=== PATIENT | female | born 1950 | race Caucasian/White ===

== ENCOUNTER → 2016-09-24 | Outpatient (CLI) | payer BC ==
--- NOTE | 2016-09-24 16:36 | XR ---
EXAMINATION TYPE: XR scoliosis survey, AP and lateral XR lumbosacral spine min 4V DATE OF EXAM: 09/24/2016 2:22 PM COMPARISON: NONE HISTORY: 66-year-old female with spondylolisthesis, lumbosacral pain FINDINGS: Lumbar spine: Leftward truncal shift with 5 lumbar type vertebral bodies. Hypertrophic facet arthropathy throughout the lumbar spine with variable mild disc interspace narrowing, mild to moderate at L5-S1. There is g rade 1 anterolisthesis at both L3-L4 and L4-L5. Vertebral body heights are maintained. Flexion result s in minimal 1 mm accentuation of the L4-L5 anterolisthesis. Extension does not significantly correct either L3-L4 or L4-L5 subluxation. Vertebral body heights are preserved. L4 limbus vertebra. Scoliosis study: 12 rib-bearing thoracic vertebral bodies. There is a gentle S-shaped curvature of the thoracolumbar s pine. Moderate endplate spondylosis upper to mid thoracic spine. To the extent visualized, vertebral body heights are maintained. The rightward curvature of the thoracic spine has a Arita angle 14 degrees. Leftward curvature of the lumbar spine has a Arita angle 6 degrees. Calcified granuloma right upper and midlung. IMPRESSION: 1. Lumbar spine: Facet arthropathy throughout with variable mild to moderate degenerative disc diseas e. 2. Lumbar spine: There are grade 1 anterolistheses at both L3-L4 and L4-L5. No evidence for dynamic s ubluxation; flexion leads to minimal 1 mm accentuation of the anterolisthesis at L4-L5. 3. Scoliosis: Gentle S-shaped curvature of the thoracolumbar spine with Arita angles as above. 4. Scoliosis: No vertebral compression collapse. 5. Scoliosis: Mild to moderate endplate spondylosis upper to mid thoracic spine.
== END ==
LOC: RADXRMAIN 13:49
PROVIDERS: ATTEND Specialist
DX: M43.16 Spondylolisthesis, lumbar region (principal); M51.36 Other intervertebral disc degeneration, lumbar region; M47.814 Spondylosis without myelopathy or radiculopathy, thoracic region; M46.86 Other specified inflammatory spondylopathies, lumbar region; M41.85 Other forms of scoliosis, thoracolumbar region
CPT/HCPCS: 72082; 72110

== ENCOUNTER → 2016-10-08 | Outpatient (CLI) | payer BC ==
--- NOTE | 2016-10-09 11:06 | MR ---
EXAMINATION TYPE: MR lumbar spine wo con DATE OF EXAM: 10/08/2016 COMPARISON: Prior plain film 09/24/2016, prior lumbar MRI dated 07/24/2014 HISTORY: Low back weakness, Spondylolisthesis TECHNIQUE: Multiplanar, multisequence images of the lumbar spine were acquired. L1-L2: Normal disc appearance without desiccation. No herniation, protrusion or disc bulging. No ca nal stenosis is present. Foramina are patent bilaterally. L2-L3: Trefoil appearance of the thecal sac is present due to facet arthropathy with hypertrophy of t he ligamentum flavum encroaching on the lateral recesses. No significant central stenosis or foramina l encroachment. L3-L4: Listhesis with associated facet arthropathy results in 8 trefoil appearance of the thecal sac. No significant foraminal encroachment. L4-L5: Posterior broad-based disc bulge causes mild anterior mass effect on the thecal sac and possib ly contacting the proximal S1 nerve roots left greater than right. There is no significant central st enosis. There is associated facet arthropathy. Facet arthropathy with hypertrophy of the ligamentum f lavum encroaches on the lateral recesses. L5-S1: Posterior broad-based disc bulge causes anterior mass effect on the thecal sac. There is facet arthropathy with hypertrophy ligamentum flavum encroaching on the lateral recesses. Circumferential extension endplate disc complex results in some mild right-sided foraminal encroachment greater than left. Lumbar segments are intact. No paraspinal masses are identified. Conus medullaris has a normal appe arance. Alignment shows a similar appearance, there is anterolisthesis grade 1 L4-5, L3-4. Probable h emangioma present in the superior endplate posteriorly at L4. Bone marrow signal shows a similar appe arance. Loss of disc height and signal at the intervertebral levels especially L2-3, L3-4, L4-5 and L 5-S1. No significant central canal stenosis. Multilevel facet arthropathy. There is a mild spinal cur vature as on prior IMPRESSION: Multilevel degenerative disc disease, facet arthropathy as on prior exam. Additional findings above.
== END | disposition home or self-care (01) ==
LOC: RADMRIMAIN 15:02
PROVIDERS: ATTEND Specialist
DX: M51.36 Other intervertebral disc degeneration, lumbar region (principal); M46.86 Other specified inflammatory spondylopathies, lumbar region
CPT/HCPCS: 72148

== ENCOUNTER → 2018-03-06 | Outpatient (CLI) | payer MEDICARE, BC ==
--- NOTE | 2018-03-06 14:49 | BD ---
EXAMINATION TYPE: Axial Bone Density DATE OF EXAM: 03/06/2018 COMPARISON: 03.26.2015 CLINICAL HISTORY: 68 YR OLD FEMALE.....ICD-10 CODE: Z13.820 OSTEOPOROSIS Height: 60.8 Weight: 114 FRAX RISK QUESTIONS: Family History (Parent hip fracture): YES RISK FACTORS HISTORY OF: Surgery to Spine/Hip...LAMINECTOMY TO L/S SPINE, BILAT TOTAL HIP REPLACEMENTS When: 2011 LAMINECTOMY, 2012 LT , 2016 RT HIPS Family History of Osteoporosis: YES, MOTHER AND GRANDMOTHER, YES, BROKEN HIPS Postmenopausal woman: YES, ABOUT 47YRS OLD Lost more than 2 inches in height since high school: YES MEDICATIONS: Prednisone or other steroids: SINGULAIR, ASTHMA, How Long: YRS Thyroid Medications: YES, SYNTHROID, FOR ABOUT 16 YRS Additional Medications: CALCIUM AND VIT D, Additional History: OSTEOARTHRITIS EXAM MEASUREMENTS: Bone mineral densitometry was performed using the [employer]. SPINE NOT SCANNED.....LAMINECTOMY 2011 HIPS NOT SCANNED THR LT 2011.....THR RT 2015 Bone mineral density about the L Wrist (g/cm2): 0.641 T Score values are as follows: -----Dist. R+U: 1.2 -----Prox. R+U: 0.5 -----Radius total: 0.3 Bone mineral density FIRST FOREARM SCAN FOR PATIENT NO FRAX.... IMPRESSION: No evidence for osteoporosis or osteopenia. NOTE: T-SCORE=SD OF THE YOUNG ADULT MEAN.
--- NOTE | 2018-03-08 10:40 | MM ---
Reason for exam: screening (asymptomatic). Last mammogram was performed 1 year ago. History: Patient is postmenopausal and has history of endometrial cancer at age 54. Physical Findings: A clinical breast exam by your physician is recommended on an annual basis and results should be correlated with mammographic findings. MG 3D Screening Mammo W/Cad Bilateral CC and MLO view(s) were taken. Technologist: Yolanda Castaneda RT (R)(M) Prior study comparison: March 04, 2017, bilateral MG 3d screening mammo w/cad. March 02, 2016, bilateral MG screening mammo w CAD. There are scattered fibroglandular densities. No significant changes when compared with prior studies. ASSESSMENT: Benign, BI-RAD 2 RECOMMENDATION: Routine screening mammogram of both breasts in 1 year.
== END ==
LOC: RADMAMWWP 09:56
PROVIDERS: ATTEND Obstetrics & Gynecology
DX: Z12.31 Encounter for screening mammogram for malignant neoplasm of breast (principal); Z13.820 Encounter for screening for osteoporosis; Z78.0 Asymptomatic menopausal state
CPT/HCPCS: 77063; 77067; 77081

== ENCOUNTER → 2018-05-09 | Outpatient (CLI) | payer MEDICARE, BC ==
--- NOTE | 2018-05-09 16:51 | XR ---
EXAMINATION TYPE: XR abdomen 2V DATE OF EXAM: 05/09/2018 CLINICAL DATA: 68-year-old female fecal urgency, diarrhea, [facility] COMPARISON: None FINDINGS: Lung bases are clear. No evidence for free intraperitoneal air. No dilated small bowel or air-fluid levels. Scattered air and stool seen throughout the colon extendi ng distally into the rectum. Moderate stool burden. No suspicious calcifications identified. Phleboliths in the pelvis. Partially visualized bilateral total arthroplasties. Prominent bridging to nearly bridging heterotopi c ossification superior left hip. IMPRESSION: 1. Moderate stool burden. 2.No evidence of bowel obstruction or free intraperitoneal air.
== END | disposition home or self-care (01) ==
LOC: RADXRYALE 13:59
PROVIDERS: ATTEND Physician Assistant Medical
DX: R15.2 Fecal urgency (principal); R19.7 Diarrhea, unspecified
CPT/HCPCS: 74019

== ENCOUNTER → 2019-04-09 | Outpatient (CLI) | payer MEDICARE, BC ==
--- NOTE | 2019-04-10 08:52 | MM ---
Reason for exam: screening (asymptomatic). Last mammogram was performed 1 year and 1 month ago. History: Patient is postmenopausal and has history of endometrial cancer at age 54. Physical Findings: A clinical breast exam by your physician is recommended on an annual basis and results should be correlated with mammographic findings. MG 3D Screening Mammo W/Cad Bilateral CC and MLO view(s) were taken. Prior study comparison: March 06, 2018, bilateral MG 3d screening mammo w/cad. March 04, 2017, bilateral MG 3d screening mammo w/cad. The breast tissue is heterogeneously dense. This may lower the sensitivity of mammography. Benign appearing bilateral calcifications. There is chronic nodularity in the right breast. No significant changes when compared with prior studies. ASSESSMENT: Benign, BI-RAD 2 RECOMMENDATION: Routine screening mammogram of both breasts in 1 year.
== END | disposition home or self-care (01) ==
LOC: RADMAMWWP 14:10
PROVIDERS: ATTEND Obstetrics & Gynecology
DX: Z12.31 Encounter for screening mammogram for malignant neoplasm of breast (principal)
CPT/HCPCS: 77063; 77067

== ENCOUNTER → 2020-08-13 | Outpatient (CLI) | payer MEDICARE, BC ==
--- NOTE | 2020-08-14 11:21 | MM ---
Reason for exam: screening (asymptomatic). Last mammogram was performed 1 year and 4 months ago. History: Patient is postmenopausal and has history of endometrial cancer at age 54. Physical Findings: A clinical breast exam by your physician is recommended on an annual basis and results should be correlated with mammographic findings. MG 3D Screening Mammo W/Cad Bilateral CC and MLO view(s) were taken. Prior study comparison: April 09, 2019, bilateral MG 3d screening mammo w/cad. March 06, 2018, bilateral MG 3d screening mammo w/cad. The breast tissue is heterogeneously dense. This may lower the sensitivity of mammography. There are benign appearing vascular calcifications bilaterally. There is no discrete abnormality. ASSESSMENT: Benign, BI-RAD 2 RECOMMENDATION: Routine screening mammogram of both breasts in 1 year.
== END | disposition home or self-care (01) ==
LOC: RADMAMWWP 10:25
PROVIDERS: ATTEND Obstetrics & Gynecology
DX: Z12.31 Encounter for screening mammogram for malignant neoplasm of breast (principal)
CPT/HCPCS: 77063; 77067

== ENCOUNTER → 2021-08-25 | Outpatient (CLI) | payer MEDICARE, BC ==
--- NOTE | 2021-08-26 12:34 | MM ---
Reason for exam: screening (asymptomatic). Last mammogram was performed 1 year ago. History: Patient is postmenopausal and has history of endometrial cancer at age 54. Physical Findings: A clinical breast exam by your physician is recommended on an annual basis and results should be correlated with mammographic findings. MG 3D Screening Mammo W/Cad Bilateral CC and MLO view(s) were taken. Prior study comparison: August 13, 2020, bilateral MG 3d screening mammo w/cad. April 09, 2019, bilateral MG 3d screening mammo w/cad. The breast tissue is heterogeneously dense. This may lower the sensitivity of mammography. No significant changes when compared with prior studies. ASSESSMENT: Benign, BI-RAD 2 RECOMMENDATION: Routine screening mammogram of both breasts in 1 year.
== END | disposition home or self-care (01) ==
LOC: RADMAMWWP 07:12
PROVIDERS: ATTEND Obstetrics & Gynecology
DX: Z12.31 Encounter for screening mammogram for malignant neoplasm of breast (principal)
CPT/HCPCS: 77063; 77067

== ENCOUNTER → 2021-11-26 | Outpatient (CLI) | payer MEDICARE, BC ==
--- NOTE | 2021-11-26 14:36 | XR ---
EXAMINATION TYPE: XR cervical spine comp DATE OF EXAM: 11/26/2021 COMPARISON: None HISTORY: 71-year-old female [id number], cervicalgia TECHNIQUE: 5 views FINDINGS: Multilevel hypertrophic facet and uncovertebral joint arthropathy is present. On the left, there may be severe bony neural foraminal narrowing C5-C6 and C6-C7, moderate at C3-4 to C5 and C7-T1. Also mod erate on the right at C5-C6. No predental space widening or prevertebral soft tissue swelling. Degene rative grade 1 anterolisthesis C4-C5, grade 1 retrolisthesis C5-C6, grade 1 anterolisthesis C7-T1. Mo derate to advanced degenerative disc disease at C5-C6 and C6-C7. Limited odontoid view. IMPRESSION: 1. Moderate to advanced spondylotic changes especially mid to lower cervical spine. Degenerative grad e 1 spondylolistheses at C4-C5, C5-C6, and C7-T1. 2. Variable moderate bony neuroforaminal narrowing as outlined above, more severe on the left at C5-C 6 and C6-C7.
== END | disposition home or self-care (01) ==
LOC: RADXRYALE 09:30
PROVIDERS: ATTEND Physician Assistant Medical
DX: M43.12 Spondylolisthesis, cervical region (principal)
CPT/HCPCS: 72050

== ENCOUNTER → 2022-08-27 | Outpatient (CLI) | payer MEDICARE, BC ==
--- NOTE | 2022-08-27 11:31 | BD ---
EXAMINATION TYPE: Axial Bone Density DATE OF EXAM: 08/27/2022 CLINICAL HISTORY: 72 years old Female. ICD-10 CODE: N95.1 Post menopausal symptoms Height: 59.5 Weight: 122 FRAX RISK QUESTIONS: Family History (Parent hip fracture): yes Glucocorticoids (More than 3mos): yes, asthma (Ex: prednisone, prednisolone, methylprednisolone, dexamethasone, and hydrocortisone). Secondary Osteoporosis: yes 3. Menopause before 45: at 47 yrs old, RISK FACTORS HISTORY OF: Surgery to Spine/Hip....laminectomy, lumbar spine, bilateral total hip replacements Family History of Osteoporosis: yes, with fxs Postmenopausal woman: at 47 yrs old Lost more than 2 inches in height since high school: yes Frequent falls: unsteady Hyperparathyroidism: no Adrenal Insufficiency: no MEDICATIONS: Prednisone or other steroids: yes, asthma, for years Thyroid Medications: yes, for 20 yrs, synthroid Osteoporosis Medications: yes, in the past, fosamax nothing now...took it for 5 yrs Additional Medications: vit d and calcium, Additional History: bilat hip and knee replacements, arthritis, lumbar surgery, patient is right hand ed EXAM MEASUREMENTS: Bone mineral densitometry was performed using the [employer] System. spine not scanned, laminectomy to lumbar spine many yrs ago both hips are surgically replaced, hips not scanned Bone mineral density about the L Wrist (g/cm2): 0.604 T Score values are as follows: -----Dist. R+U: 0.9 -----Prox. R+U: 0.0 -----Radius total: -0.3 Z Score values are as follows: -----Dist. R+U: 2.8 -----Prox. R+U: 1.9 -----Radius total: 1.6 Bone mineral density has: Decreased -4.4% since study of: 03.06.2018 FRAX%s: ...no frax....hips not scanned...both have been replaced. IMPRESSION: Normal (Values between +1 and -1 indicate normal bone mass). Consider repeating this study in 5 year s or sooner if there is some new clinical indication. NOTE: T-SCORE=SD OF THE YOUNG ADULT MEAN.
--- NOTE | 2022-08-30 07:39 | MM ---
Reason for Exam: Screening (asymptomatic). Last screening mammogram was performed 12 month(s) ago. Patient History: Menarche at age 13. First Full-Term at age 32. Late child-bearing (after 30). Left ovary removed at age 54. Right ovary removed at age 54. Hysterectomy at age 54. Postmenopausal. Patient has history of breast feeding. Sister had ovarian cancer, age 53. Risk Values: Mily 5 year model risk: 2.6%. NCI Lifetime model risk: 7.6%. Prior Study Comparison: 04/09/2019 Bilateral Screening Mammogram, [facility]. 08/13/2020 Bilateral Screening Mammogram, [facility]. 08/25/2021 Bilateral Screening Mammogram, [facility]. Tissue Density: The breast tissue is heterogeneously dense. This may lower the sensitivity of mammography. Findings: Analyzed By CAD. Benign-appearing vascular calcification in the bilateral breasts is redemonstrated. There is no suspicious group of microcalcifications or new suspicious mass in either breast. Overall Assessment: Benign, BI-RAD 2 Management: Screening Mammogram of both breasts in 1 year. . Patient should continue monthly self-breast exams. A clinical breast exam by your physician is recommended on an annual basis. This exam should not preclude additional follow-up of suspicious palpable abnormalities. Note on Mily scores and lifetime risk: 1. A Mily score greater than 3% is considered moderate risk. If this is the case, consider specialist referral to assess eligibility for a risk reducing agent. 2. If overall lifetime risk for the development of breast cancer is 20% or higher, the patient may qualify for future screening with alternating mammogram and breast MRI. Electronically signed and approved by: David Goodman M.D.
== END | disposition home or self-care (01) ==
LOC: RADMAMWWP 10:06
PROVIDERS: ATTEND Obstetrics & Gynecology
DX: Z12.31 Encounter for screening mammogram for malignant neoplasm of breast (principal); N95.1 Menopausal and female climacteric states; Z13.820 Encounter for screening for osteoporosis
CPT/HCPCS: 77063; 77067; 77080

== ENCOUNTER → 2023-08-29 | Outpatient (CLI) | payer MEDICARE, BC ==
--- NOTE | 2023-08-31 08:46 | MM ---
Reason for Exam: Screening (asymptomatic). Last screening mammogram was performed 12 month(s) ago. Patient History: Menarche at age 13. First Full-Term at age 32. Late child-bearing (after 30). Left ovary removed at age 54. Right ovary removed at age 54. Hysterectomy at age 54. Postmenopausal. Patient has history of breast feeding. Sister had ovarian cancer, age 53. Risk Values: Mily 5 year model risk: 2.6%. NCI Lifetime model risk: 7.2%. Prior Study Comparison: 03/06/2018 Bilateral Screening Mammogram, [facility]. 04/09/2019 Bilateral Screening Mammogram, [facility]. 08/13/2020 Bilateral Screening Mammogram, [facility]. 08/25/2021 Bilateral Screening Mammogram, [facility]. 08/27/2022 Bilateral MG 3D screening mammo w/cad, [facility]. Tissue Density: The breasts are heterogeneously dense, which may obscure small masses. Findings: Analyzed By CAD. A 5 mm nodular density along the inner margin of the left breast. Chronic nodularity stable. There is a benign-appearing calcifications. Overall Assessment: Incomplete: need additional imaging evaluation, BI-RAD 0 Management: Diagnostic Mammogram of the right breast. . Patient should continue monthly self-breast exams. A clinical breast exam by your physician is recommended on an annual basis. This exam should not preclude additional follow-up of suspicious palpable abnormalities. Note on Mily scores and lifetime risk: 1. A Mily score greater than 3% is considered moderate risk. If this is the case, consider specialist referral to assess eligibility for a risk reducing agent. 2. If overall lifetime risk for the development of breast cancer is 20% or higher, the patient may qualify for future screening with alternating mammogram and breast MRI. Electronically signed and approved by: Arnie Alexander M.D. Radiologis
== END | disposition home or self-care (01) ==
LOC: RADMAMWWP 10:05
PROVIDERS: ATTEND Family Medicine
DX: Z12.31 Encounter for screening mammogram for malignant neoplasm of breast (principal); Z78.0 Asymptomatic menopausal state
CPT/HCPCS: 77063; 77067

== ENCOUNTER → 2023-09-01 | Outpatient (CLI) | payer MEDICARE, BC ==
--- NOTE | 2023-09-01 10:41 | MM ---
Reason for Exam: Additional evaluation requested from abnormal screening. Last screening mammogram was performed less than 1 month ago. Patient History: Menarche at age 13. First Full-Term at age 32. Late child-bearing (after 30). Left ovary removed at age 54. Right ovary removed at age 54. Hysterectomy at age 54. Postmenopausal. Patient has history of breast feeding. Sister had ovarian cancer, age 53. Risk Values: Mily 5 year model risk: 2.6%. NCI Lifetime model risk: 7.2%. Prior Study Comparison: 03/04/2017 Bilateral Screening Mammogram, [facility]. 03/06/2018 Bilateral Screening Mammogram, [facility]. 04/09/2019 Bilateral Screening Mammogram, [facility]. 08/13/2020 Bilateral Screening Mammogram, [facility]. 08/25/2021 Bilateral Screening Mammogram, [facility]. 08/27/2022 Bilateral MG 3D screening mammo w/cad, [facility]. 08/29/2023 Bilateral MG 3D screening mammo w/cad, [facility]. Tissue Density: Left: The breasts are heterogeneously dense, which may obscure small masses. Findings: Analyzed By CAD. Images are reviewed with attention to the left breast. The small density which appears to be developing in the upper aspect left breast is at the skin surface. On inspection multiple moles are present. At the expected location normal corresponds to the mammographic finding. No suspicious groups of microcalcifications, spiculated or lobular masses, architectural distortion or other secondary signs of malignancy are mammographically apparent. Overall Assessment: Benign, BI-RAD 2 Management: Screening Mammogram of both breasts in 1 year. A negative mammogram report should not preclude additional follow up of suspicious palpable abnormalities. Patient should continue monthly self breast exam. A clinical breast exam by your physician is recommended on an annual basis and results should be correlated with mammographic findings. Note on Mily scores and lifetime risk: 1. A Mily score greater than 3% is considered moderate risk. If this is the case, consider specialist referral to assess eligibility for a risk reducing agent. 2. If overall lifetime risk for the development of breast cancer is 20% or higher, the patient may qualify for future screening with alternating mammogram and breast MRI. Electronically signed and approved by: Kvng Abbasi D.O. Radiologis
== END | disposition home or self-care (01) ==
LOC: RADMAMWWP 09:18
PROVIDERS: ATTEND Family Medicine
DX: Z53.9 Procedure and treatment not carried out, unspecified reason (principal)

== ENCOUNTER → 2023-10-28 | Outpatient (CLI) | payer MEDICARE, BC ==
--- NOTE | 2023-10-30 13:34 | PE ---
EXAMINATION TYPE: PET CT fusion skull to thigh DATE OF EXAM: 10/28/2023 CLINICAL INDICATION:Female, 73 years old with history of Z85.42 PERSONAL HISTORY OF MALIGNANT NEOPLAS M OF O; TECHNIQUE: Following the intravenous administration of 10.76 mCi of F-18 FDG, whole body images are performed from the skull base to the midthigh. Images are reviewed on the computer in the coronal, axial, and sagittal planes. Reconstructed rotating images are created on independent workstation and reviewed on the computer. A non-contrast CT is performed in conjunction with the PET scan. Glucose level 106 mg/dL CT DLP: 313 mGycm, Automated exposure control for dose reduction was used. COMPARISON: CT 01/09/2016, PET/CT None, MRI: None FINDINGS: Mediastinal SUV mean is 1.9. Hepatic parenchyma SUV mean is 2.6. SKULL BASE AND NECK: No suspicious radiotracer activity. CHEST, MEDIASTINUM, AND HILAR REGION: No suspicious radiotracer activity. ABDOMEN AND PELVIS: No suspicious radiotracer activity. MUSCULOSKELETAL STRUCTURES: * No suspicious radiotracer activity. * Bilateral uptake within the shoulder girdles compatible with muscle strain/use. * Uptake within the supraspinous ligament along the spine in the lower cervical spine and at L3 spin ous process. Findings suspicious for physiologic uptake to prior injury. OTHER CT: Bilateral hip arthroplasties are present which limits evaluation the pelvis. Hardware appea rs in appropriate position. The heart is mildly enlarged for size. Partially calcified nodule in the posterior aspect of the right lower lobe superior segment. Gastric diverticulum near the left adrenal gland. IMPRESSION: No suspicious radiotracer activity.
== END | disposition home or self-care (01) ==
LOC: RADPETMAIN 10:19
PROVIDERS: ATTEND Physical Medicine & Rehabilitation
DX: Z85.42 Personal history of malignant neoplasm of other parts of uterus (principal)
CPT/HCPCS: 78815; A9552

== ENCOUNTER → 2024-08-29 | Outpatient (CLI) | payer MEDICARE, BC ==
--- NOTE | 2024-08-29 10:25 | MM ---
Reason for Exam: Screening (asymptomatic). Last screening mammogram was performed 12 month(s) ago. Patient History: Menarche at age 13. First Full-Term at age 32. Late child-bearing (after 30). Left ovary removed at age 54. Right ovary removed at age 54. Hysterectomy at age 54. Postmenopausal. Patient has history of breast feeding. Sister had ovarian cancer, age 53. Risk Values: Mily 5 year model risk: 2.7%. NCI Lifetime model risk: 6.9%. Prior Study Comparison: 08/27/2022 Bilateral MG 3D screening mammo w/cad, [facility]. 08/29/2023 Bilateral MG 3D screening mammo w/cad, [facility]. 09/01/2023 Left MG 3D work up w/cad , [facility]. Tissue Density: The breasts are heterogeneously dense, which may obscure small masses. Findings: Analyzed By CAD. Benign-appearing vascular calcifications bilaterally is redemonstrated. There are a few tiny benign-appearing round calcifications also redemonstrated scattered throughout the right breast. There is no suspicious new group of microcalcifications or new suspicious mass in either breast. Overall Assessment: Benign, BI-RAD 2 Management: Screening Mammogram of both breasts in 1 year. . Patient should continue monthly self-breast exams. A clinical breast exam by your physician is recommended on an annual basis. This exam should not preclude additional follow-up of suspicious palpable abnormalities. Note on Mily scores and lifetime risk: 1. A Mily score greater than 3% is considered moderate risk. If this is the case, consider specialist referral to assess eligibility for a risk reducing agent. 2. If overall lifetime risk for the development of breast cancer is 20% or higher, the patient may qualify for future screening with alternating mammogram and breast MRI. [facility], , 08/29/2024 10:22 AM. Electronically signed and approved by: David Goodman M.D.
== END | disposition home or self-care (01) ==
LOC: RADMAMWWP 09:59
PROVIDERS: ATTEND Family Medicine
DX: Z12.31 Encounter for screening mammogram for malignant neoplasm of breast (principal); R92.333 Mammographic heterogeneous density, bilateral breasts; Z78.0 Asymptomatic menopausal state
CPT/HCPCS: 77063; 77067

== ENCOUNTER → 2024-10-15 | Outpatient (CLI) | payer MEDICARE, BC ==
--- NOTE | 2024-10-15 14:04 | XR ---
EXAMINATION TYPE: XR forearm LT, XR elbow complete LT DATE OF EXAM: 10/15/2024 1:57 PM COMPARISON: None CLINICAL INDICATION: Female, 74 years old with history of [id number] ELBOW PAIN,ARM PAIN; ILANAH, ivonne gagnon TECHNIQUE: XR forearm LT, XR elbow complete LT; forearm was examined in AP and lateral projections. FINDINGS/IMPRESSION: 1. Acute fracture of the radial head with radial angulation. 2. Diffuse soft tissue swelling of the forearm No evidence of fracture. Some calcified bodies are se en along the dorsal forearm. [facility], Workstation: [facility], 10/15/2024 2:02 PM
== END | disposition home or self-care (01) ==
LOC: RADXRYALE 13:38
PROVIDERS: ATTEND Physician Assistant Medical
DX: S52.122A Displaced fracture of head of left radius, initial encounter for closed fracture (principal); M79.602 Pain in left arm